=== PATIENT | male | born 1995 | race Caucasian/White ===

== ENCOUNTER 2025-02-16 11:03 | Emergency (ER) | payer OTHER, SELFPAY ==
[2025-02-16 11:08] VITALS: BP 111/70; PULSE 101; RESP 15; TEMP 36.5; O2SAT 96; BMI 31.9
[2025-02-16] MEDS: ONDANSETRON 4 MG/2 ML INJ IV ×2 (11:30→13:27)
[2025-02-16 11:36] LABS: Add Manual Diff / Slide Review NO; Hematocrit 47.7 % (41-53); Hemoglobin 16.4 g/dL (13.5-17.5); Lymphocytes Absolute Auto 300 /uL (1100-4500); Mean Corpuscular HGB Conc 34.3 % (30-36); Mean Corpuscular Hemoglobin 28.4 PG (26-34); Mean Corpuscular Volume 82.6 fL (80-100); Platelet Count 245 X10^3/uL (150-400)
[2025-02-16 11:48] LABS: Alanine Aminotransferase 47 IU/L (<50); Albumin 4.7 g/dL (3.5-5.0); Albumin Globulin Ratio 1.3 (1.0-2.8); Alkaline Phosphatase 100 U/L (38-126); Blood Urea Nitrogen 16 mg/dL (9-20); Calcium 9.1 mg/dL (8.4-10.2); Carbon Dioxide 23 mmol/L (22-32); Chloride 107 mmol/L (98-107); Estimated Glomerular Filt Rate > 60 mL/min (>60); Globulin 3.7 g/dL (1.7-4.1); Glucose 118 mg/dL (70-99); HEMOLYSIS 24 (0-50); Lipase 65 U/L (23-300); Potassium 4.2 mmol/L (3.4-5.1); Sodium 141 mmol/L (137-145); Total Protein 8.4 g/dL (6.3-8.2)
[2025-02-16 11:54] LABS: Ictotest Urine Negative (Negative)
[2025-02-16 12:00] LABS: Culture Indicated Urine Cult Not Indicated
--- NOTE | 2025-02-16 12:49 | ED.ABDPAIN ---
HPI - Abdominal Pain <Lily Cruz PA-C - Last Filed: 02/16/25 19:21> General Chief Complaint: Abdominal Pain Stated Complaint: V/N Throwing up a little bit of blood Time Seen by Provider: 02/16/25 12:34 Source: patient Mode of arrival: Ambulatory History of Present Illness HPI narrative: Mr. 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 Patient states he was in his normal state of health when he went to sleep last night however when he woke up this morning he has had multiple episodes of vomiting and dry heaving. 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 He went to [place] [employer] [place] and was sent to the ER for further management. At this time he feels very dehydrated. States that he has not really having diarrhea but did have 1 loose bowel movement while vomiting earlier today. Denies fevers but admits to chills. No known sick contacts. No smoking, marijuana or drug use. Occasional/social alcohol use. He does admit to having a cough over the last week but denies any other flu-like symptoms, sore throat, congestion or ear pain. No back pain, flank pain, dysuria or hematuria. Related Data Previous Rx's ?Medication ?Instructions ?Recorded amoxicillin 875 mg-potassium 1 tab PO Q12H 7 days #14 tabs 02/16/25 clavulanate 125 mg tablet ondansetron 4 mg disintegrating 4 mg PO Q8H PRN nausea and 02/16/25 tablet vomiting #20 tabs Allergies Allergy/AdvReac Type Severity Reaction Status Date / Time No Known Drug Allergies Allergy Verified 02/16/25 11:08 Review of Systems <Lily Cruz PA-C - Last Filed: 02/16/25 19:21> Review of Systems ROS Unobtainable: All systems reviewed & are unremarkable except as noted in HPI and below Patient History <Lily Cruz PA-C - Last Filed: 02/16/25 19:21> Social History Smoking Status: Unknown if ever smoked Smoking Status: Unknown if ever smoked Exam <Lily Cruz PA-C - Last Filed: 02/16/25 19:21> Narrative Exam Narrative: GENERAL: 29 year old patient appears stated age. Well-developed patient, appears fatigued, in no acute distress, not actively vomiting. HEAD: Atraumatic. Normocephalic. EYES: No scleral icterus. No injection or drainage. NECK: Trachea midline. Cervical ROM intact. CARDIOVASCULAR: Regular rate and rhythm. RESPIRATORY: ?Nonlabored respirations. ?Speaking in clear, full sentences. ?Clear to auscultation. Breath sounds equal bilaterally. No wheezes, rales, or rhonchi. ? GASTROINTESTINAL: Abdomen soft, nondistended, bowel sounds present. There was diffuse nonfocal abdominal tenderness, no rebound or guarding. EXTREMITIES: No LE edema or joint tenderness. NEURO: AOx3. ?Clear speech. ?Moves all 4 extremities appropriately. SKIN: No rash or erythema of visible areas Initial Vital Signs Initial Vital Signs: Vital Signs Temperature 97.7 F 02/16/25 11:08 Pulse Rate 101 H 02/16/25 11:08 Respiratory Rate 15 02/16/25 11:08 Blood Pressure 111/70 02/16/25 11:08 Pulse Oximetry 96 02/16/25 11:08 Oxygen Delivery Method Room Air 02/16/25 11:08 <Neri Collier MD - Last Filed: 02/16/25 19:22> Initial Vital Signs Initial Vital Signs: Vital Signs Temperature 97.7 F 02/16/25 11:08 Pulse Rate 101 H 02/16/25 11:08 Respiratory Rate 15 02/16/25 11:08 Blood Pressure 111/70 02/16/25 11:08 Pulse Oximetry 96 02/16/25 11:08 Oxygen Delivery Method Room Air 02/16/25 11:08 Course <Lily Cruz PA-C - Last Filed: 02/16/25 19:21> Orders Ordered: ED Orders 02/16/25 11:25 Complete Blood Count AUTO DIFF Stat Comprehensive Metabolic Panel Stat Lactate (Lactic Acid) Stat Lipase Stat 02/16/25 11:30 Ictotest Urine Stat Urine Microscopic Stat 02/16/25 12:49 CT abdomen pelvis w con Stat XR chest 2V Stat 02/16/25 17:36 Respiratory Panel (Film Array) Stat Ondansetron HCl (Ondansetron 4 Mg/2 Ml Inj) 4 mg IV NOW PRN PRN Reason: Nausea And Vomiting Last Admin: 02/16/25 11:30 Dose: 4 mg Documented By: SHANE Ondansetron HCl (Ondansetron 4 Mg Odt) 4 mg PO NOW PRN PRN Reason: Nausea And Vomiting Discontinued Medications Acetaminophen (Acetaminophen 325 Mg Tablet) 975 mg PO NOW ONE Stop: 02/16/25 17:11 Last Admin: 02/16/25 17:28 Dose: 975 mg Documented By: SHAHRZAD Sodium Chloride (Normal Saline 0.9%) 1,000 mls @ 1,000 mls/hr IV BOLUS ONE Stop: 02/16/25 13:48 Last Infusion: 02/16/25 14:55 Dose: Infused Documented By: Admin: 02/16/25 13:27 Dose: 1,000 mls/hr Documented By: SHAHRZAD Ceftriaxone Sodium 1,000 mg/ (Sodium Chloride) 100 mls @ 200 mls/hr IV NOW ONE Stop: 02/16/25 14:41 Last Infusion: 02/16/25 15:55 Dose: Infused Documented By: Admin: 02/16/25 14:52 Dose: 200 mls/hr Documented By: DAVON Metronidazole (Flagyl) 500 mg in 100 mls @ 100 mls/hr IV NOW ONE Stop: 02/16/25 15:39 Last Infusion: 02/16/25 17:10 Dose: Infused Documented By: Admin: 02/16/25 15:56 Dose: 100 mls/hr Documented By: SHAHRZAD Sodium Chloride (Normal Saline 0.9%) 1,000 mls @ 1,000 mls/hr IV BOLUS ONE Stop: 02/16/25 18:09 Last Infusion: 02/16/25 19:16 Dose: Infused Documented By: Admin: 02/16/25 17:29 Dose: 1,000 mls/hr Documented By: SHAHRZAD Ketorolac Tromethamine (Ketorolac 30 Mg/Ml Vial) 15 mg IV NOW ONE Stop: 02/16/25 14:26 Last Admin: 02/16/25 14:53 Dose: 15 mg Documented By: DAVON Ondansetron HCl (Ondansetron 4 Mg/2 Ml Inj) 4 mg IV NOW ONE Stop: 02/16/25 12:50 Last Admin: 02/16/25 13:27 Dose: 4 mg Documented By: SHAHRZAD Pantoprazole Sodium (Pantoprazole 40 Mg Vial) 40 mg IV NOW ONE Stop: 02/16/25 12:50 Last Admin: 02/16/25 13:27 Dose: 40 mg Documented By: SHAHRZAD Vital Signs Vital signs: Vital Signs - 8 hr 02/16/25 17:13 02/16/25 17:28 02/16/25 19:17 Temperature 100.4 F H 100.4 F H 99.3 F Pulse Rate 116 H Respiratory Rate 19 Pulse Oximetry 99 <Neri Collier MD - Last Filed: 02/16/25 19:22> Orders Ordered: ED Orders 02/16/25 11:25 Complete Blood Count AUTO DIFF Stat Comprehensive Metabolic Panel Stat Lactate (Lactic Acid) Stat Lipase Stat 02/16/25 11:30 Ictotest Urine Stat Urine Microscopic Stat 02/16/25 12:49 CT abdomen pelvis w con Stat XR chest 2V Stat 02/16/25 17:36 Respiratory Panel (Film Array) Stat Ondansetron HCl (Ondansetron 4 Mg/2 Ml Inj) 4 mg IV NOW PRN PRN Reason: Nausea And Vomiting Last Admin: 02/16/25 11:30 Dose: 4 mg Documented By: SHANE Ondansetron HCl (Ondansetron 4 Mg Odt) 4 mg PO NOW PRN PRN Reason: Nausea And Vomiting Discontinued Medications Acetaminophen (Acetaminophen 325 Mg Tablet) 975 mg PO NOW ONE Stop: 02/16/25 17:11 Last Admin: 02/16/25 17:28 Dose: 975 mg Documented By: SHAHRZAD Sodium Chloride (Normal Saline 0.9%) 1,000 mls @ 1,000 mls/hr IV BOLUS ONE Stop: 02/16/25 13:48 Last Infusion: 02/16/25 14:55 Dose: Infused Documented By: Admin: 02/16/25 13:27 Dose: 1,000 mls/hr Documented By: SHAHRZAD Ceftriaxone Sodium 1,000 mg/ (Sodium Chloride) 100 mls @ 200 mls/hr IV NOW ONE Stop: 02/16/25 14:41 Last Infusion: 02/16/25 15:55 Dose: Infused Documented By: Admin: 02/16/25 14:52 Dose: 200 mls/hr Documented By: DAVON Metronidazole (Flagyl) 500 mg in 100 mls @ 100 mls/hr IV NOW ONE Stop: 02/16/25 15:39 Last Infusion: 02/16/25 17:10 Dose: Infused Documented By: Admin: 02/16/25 15:56 Dose: 100 mls/hr Documented By: SHAHRZAD Sodium Chloride (Normal Saline 0.9%) 1,000 mls @ 1,000 mls/hr IV BOLUS ONE Stop: 02/16/25 18:09 Last Infusion: 02/16/25 19:16 Dose: Infused Documented By: Admin: 02/16/25 17:29 Dose: 1,000 mls/hr Documented By: SHAHRZAD Ketorolac Tromethamine (Ketorolac 30 Mg/Ml Vial) 15 mg IV NOW ONE Stop: 02/16/25 14:26 Last Admin: 02/16/25 14:53 Dose: 15 mg Documented By: DAVON Ondansetron HCl (Ondansetron 4 Mg/2 Ml Inj) 4 mg IV NOW ONE Stop: 02/16/25 12:50 Last Admin: 02/16/25 13:27 Dose: 4 mg Documented By: SHAHRZAD Pantoprazole Sodium (Pantoprazole 40 Mg Vial) 40 mg IV NOW ONE Stop: 02/16/25 12:50 Last Admin: 02/16/25 13:27 Dose: 40 mg Documented By: SHAHRZAD Vital Signs Vital signs: Vital Signs - 8 hr 02/16/25 17:13 02/16/25 17:28 02/16/25 19:17 Temperature 100.4 F H 100.4 F H 99.3 F Pulse Rate 116 H Respiratory Rate 19 Pulse Oximetry 99 MDM - Abdominal Pain <Lily Cruz PA-C - Last Filed: 02/16/25 19:21> Medical Records Medical records narrative: None available for review Lab Data 02/16/25 11:25 02/16/25 11:25 Labs: Lab Results 02/16/25 02/16/25 02/16/25 Range/Units 11:25 11:30 17:36 WBC 16.0 H (4.5-11.0) X10^3/uL RBC 5.78 (4.5-5.9) X10^6/uL Hgb 16.4 (13.5-17.5) g/dL Hct 47.7 (41-53) % MCV 82.6 (80-100) fL MCH 28.4 (26-34) PG MCHC 34.3 (30-36) % RDW 13.1 (11.6-14.8) % Plt Count 245 (150-400) X10^3/uL Neut % (Auto) 94.9 H (50-75) % Lymph % (Auto) 1.6 L (25-40) % [place] % (Auto) 3.1 (3-14) % Eos % (Auto) 0.3 L (2-4) % Baso % (Auto) 0.1 (0-2) % Neut # (Auto) 12787 H (0491-6629) /uL Lymph # (Auto) 300 L (7542-3080) /uL [place] # (Auto) 500 (0-900) /uL Eos # (Auto) 0 (0-450) /uL Baso # (Auto) 0 (0-100) /uL Sodium 141 (137-145) mmol/L Potassium 4.2 (3.4-5.1) mmol/L Chloride 107 (98-107) mmol/L Carbon Dioxide 23 (22-32) mmol/L BUN 16 (9-20) mg/dL Creatinine 1.15 (0.66-1.25) mg/dL Estimated GFR > 60 (>60) mL/min BUN/Creatinine Ratio 13.9 (6-22) Glucose 118 H (70-99) mg/dL Lactate 2.0 (0.7-2.1) mmol/L Calcium 9.1 (8.4-10.2) mg/dL Total Bilirubin 0.9 (0.2-1.3) mg/dL AST 28 (17-59) IU/L ALT 47 (<50) IU/L Alkaline Phosphatase 100 (38-126) U/L Total Protein 8.4 H (6.3-8.2) g/dL Albumin 4.7 (3.5-5.0) g/dL Globulin 3.7 (1.7-4.1) g/dL Albumin/Globulin Ratio 1.3 (1.0-2.8) Lipase 65 (23-300) U/L Ur Bilirubin Confirm Negative (Negative) Urine RBC 0-1/hpf (0-5/HPF) Urine WBC 1-5/hpf (0-5/HPF) Ur Squamous Epith Cells 0-1 /hpf (0-5/HPF) Urine Bacteria Occasional (0-1) (None) Urine Mucus 3+ H (Negative) Ur Culture Indicated? Cult not indicated Vol Urine Centrifuged 10ml (spun) Chlamy pneumoniae PCR Not detected (Not Detect) Adenovirus (PCR) Not detected (Not Detect) B. pertussis DNA (PCR) Not detected (Not Detect) B.parapertussis DNA PCR Not detected (Not Detecte) Coronavirus OC43 (PCR) Not detected (Not Detect) Coronavirus HKU1 (PCR) Not detected (Not Detect) Coronavirus 229E (PCR) Not detected (Not Detect) SARS-CoV-2 (PCR) Not detected (Not Detecte) Coronavirus NL63 (PCR) Not detected (Not Detect) Human Metapneumovir PCR Detected H (Not Detect) Influenza Type A (PCR) Not detected (Not Detect) Influenza Type B (PCR) Not detected (Not Detect) M. pneumoniae (PCR) Not detected (Not Detect) Parainfluenza 1 (PCR) Not detected (Not Detect) Parainfluenza 2 (PCR) Not detected (Not Detect) Parainfluenza 3 (PCR) Not detected (Not Detect) Parainfluenza 4 (PCR) Not detected (Not Detect) RSV (PCR) Not detected (Not Detect) Entero/Rhino (PCR) Not detected (Not Detect) Point of care testing: Urine Dip Bedside Urine Glucose Negative Bedside Urine Bilirubin + 1 Bedside Urine Ketone - Negative Urine Specific [place] 1.030 Bedside Urine Occult Blood - Negative Bedside Urine pH 6.0 Bedside Urine Protein +/- 15 Bedside Urine Urobilinogen - Negative Bedside Urine Nitrite - Negative Bedside Urine Leukocytes - Negative Esterase Imaging Data Chest x-ray: Radiologist's Impression: PROCEDURE: XR CHEST 2V INDICATIONS: cough x 1 week; now w N/V/abd pain TECHNIQUE: 2 views of the chest were acquired. COMPARISON: [facility], CT, CT ABDOMEN PELVIS W CON, 02/16/2025, 13:02. FINDINGS: Surgical changes and devices: None. Lungs and pleura: An incomplete inspiratory result is noted, causing a crowded appearance to the lung markings. No focal infiltrates are seen. No pneumothorax or significant pleural effusions are seen. Mediastinum: Mediastinal contours are normal. Heart size is normal. Bones and chest wall: No suspicious bony abnormalities. Soft tissues appear unremarkable. IMPRESSION: Low lung volumes, without an acute abnormality seen by plain film. No focal infiltrates are seen. Dictated by: Julio Umanzor M.D. on 02/16/2025 at 12:17 Approved by: Julio Umanzor M.D. on 02/16/2025 at 12:17 CT scan - abdomen/pelvis: Radiologist's Impression: PROCEDURE: CT ABDOMEN PELVIS W CON INDICATIONS: diffuse abd pain; N/V TECHNIQUE: After the administration of intravenous contrast, axial sections acquired from the lung bases to the pubic symphysis. Coronal and sagittal reformats were performed. For radiation dose reduction, the following was used: automated exposure control, adjustment of mA and/or kV according to patient size. COMPARISON: [facility], CR, XR CHEST 2V, 02/16/2025, 12:56. FINDINGS: Image quality: Diagnostic. Lower Chest: No significant findings. ABDOMEN: Liver: No solid mass. Gallbladder: No radiopaque gallstones or wall thickening. Biliary ducts: No biliary dilation. Pancreas: No ductal dilation. Spleen: Size is within normal limits. Adrenal Glands: No adrenal nodules. Kidneys and Ureters: No hydronephrosis. No solid mass. No complex renal cystic lesion which requires follow up. Stomach and Bowel: No dilated loops of small bowel are seen. However, there is focal wall thickening and hyperenhancement seen involving the terminal ileum. Focal wall thickening can be seen involving the rectum. The more proximal colon is within normal limits. Peritoneum: No abnormal intraperitoneal fluid. No free air. Ventral Wall: No significant ventral hernia. Abdominal Nodes: No retroperitoneal or mesenteric adenopathy by size criteria. Vessels: Aorta and inferior vena cava are normal in size. PELVIS: Pelvic Organs: Unremarkable. Bladder: No bladder wall thickening, accounting for underdistention. Pelvic Nodes: No enlarged lymph nodes. Miscellaneous: No inguinal hernias are seen. Bones: No aggressive osseous abnormality. IMPRESSION: Focal wall thickening and hyperenhancement can be seen involving the terminal ileum. In a patient of this age, please consider Crohn's disease. Focal wall thickening can be seen involving the rectum. Differential diagnosis includes artifact and distal colitis. Dictated by: Julio Umanzor M.D. on 02/16/2025 at 12:17 Approved by: Julio Umanzor M.D. on 02/16/2025 at 12:20 [facility] Narrative Medical decision making narrative: 29-year-old male, active [employer], with no reported past medical history or surgeries who presents to the emergency department for abdominal pain, nausea and vomiting since this morning. No significant smoking drug or alcohol history. No prior abdominal surgeries. Differential diagnosis includes but is not limited to viral gastroenteritis, cholecystitis, appendicitis, gastritis, colitis, viral syndrome, dehydration, electrolyte abnormality, UTI, SHEYLA, etc. On exam patient is in no acute distress, nontoxic appearing, he is visibly fatigued. He is afebrile. On exam he is nonfocal but diffuse abdominal tenderness, there is no rebound or guarding. Labs obtained in triage reveal elevated WBC count of 16.0, with 94.9% neutrophils. Normal hemoglobin 16.4. Platelets 245. Normal sodium 141, potassium 4.2, BUN 16, creatinine 1.15, there was no comparison. Glucose is 118. Normal AST 28 ALT 47. Normal lipase 65. Urinalysis does reveal mucus, 0-1 squamous epithelial cells, 1-5 WBC, 0-1 RBC. Lactate WNL 2.0. We will treat patient with IV fluids, Zofran at this time and obtain chest x-ray due to cough x1 week and CT abdomen and pelvis due to abdominal pain. Symptoms improved after ED treatment, repeat abdominal exam is improved. Chest x-ray reveals low lung volumes without acute abnormality seen by plain film. CT abdomen pelvis reveals a focal wall thickening and hyperenhancement can be seen involving the terminal ileum? in the patient of this age, please consider Crohn's disease?. There is also focal wall thickening which can be seen involving the rectum differential diagnosis includes artifact and distal colitis. --> I discussed all imaging results with the patient, printed him his own copy. He denies any history of rectal pain or engaging in anal intercourse. No known history of IBD. He is feeling better. I discussed the case with my attending ED physician, Dr. Collier. At this time we will treat for possible bacterial colitis given his elevated white blood cell count, however I did recommend that he follows up for colonoscopy for further evaluation of possible IBD. We will treat with ceftriaxone and Flagyl in the ED then reassess. He has now started tolerating p.o., no episodes of vomiting during his ED stay. 1700: At time of discharge evaluation, patient's temperature was retaken and found to be elevated and HR ranging from 99-116. In addition to his abdominal symptoms he has also been experiencing cough so at this time we will add on Tylenol for fever, additional fluids and viral swab. 1850: Viral Swab positive for UA metapneumovirus. Temp down to 99.3. Discussed all my concerns with the patient that his symptoms could be due to colitis in addition to the upper respiratory virus. At this time his abdominal pain and nausea has subsided but he continues to feel hot. At this time I did offer admission to the hospital for continued observation, patient would like to call his to discuss. 1914: , Susan, now at the bedside. Pt's HR improved to the 90s with her here. Discussed again all lab work and imaging results and the diagnosis of both colitis in addition to human metapneumovirus. Offered admission for continued monitoring however patient would prefer to be discharged at this time. Discussed strict return precautions that he should return if he has no improvement or if he gets any worse. He was prescribed Augmentin and Zofran to take and I also recommended a clear liquid diet for 1-2 days. Repeat physical exam was performed revealing normal bowel sounds, soft and nontender abdomen, clear lung matthew, negative meningeal signs and no lower extremity swelling. Patient his verbalized understanding of all questions, are agreeable with the plan, and patient is stable for discharge home, tolerating p.o.. <Neri Collier MD - Last Filed: 02/16/25 19:22> Lab Data Labs: Lab Results 02/16/25 02/16/25 02/16/25 Range/Units 11:25 11:30 17:36 WBC 16.0 H (4.5-11.0) X10^3/uL RBC 5.78 (4.5-5.9) X10^6/uL Hgb 16.4 (13.5-17.5) g/dL Hct 47.7 (41-53) % MCV 82.6 (80-100) fL MCH 28.4 (26-34) PG MCHC 34.3 (30-36) % RDW 13.1 (11.6-14.8) % Plt Count 245 (150-400) X10^3/uL Neut % (Auto) 94.9 H (50-75) % Lymph % (Auto) 1.6 L (25-40) % [place] % (Auto) 3.1 (3-14) % Eos % (Auto) 0.3 L (2-4) % Baso % (Auto) 0.1 (0-2) % Neut # (Auto) 20553 H (9677-5676) /uL Lymph # (Auto) 300 L (1459-5349) /uL [place] # (Auto) 500 (0-900) /uL Eos # (Auto) 0 (0-450) /uL Baso # (Auto) 0 (0-100) /uL Sodium 141 (137-145) mmol/L Potassium 4.2 (3.4-5.1) mmol/L Chloride 107 (98-107) mmol/L Carbon Dioxide 23 (22-32) mmol/L BUN 16 (9-20) mg/dL Creatinine 1.15 (0.66-1.25) mg/dL Estimated GFR > 60 (>60) mL/min BUN/Creatinine Ratio 13.9 (6-22) Glucose 118 H (70-99) mg/dL Lactate 2.0 (0.7-2.1) mmol/L Calcium 9.1 (8.4-10.2) mg/dL Total Bilirubin 0.9 (0.2-1.3) mg/dL AST 28 (17-59) IU/L ALT 47 (<50) IU/L Alkaline Phosphatase 100 (38-126) U/L Total Protein 8.4 H (6.3-8.2) g/dL Albumin 4.7 (3.5-5.0) g/dL Globulin 3.7 (1.7-4.1) g/dL Albumin/Globulin Ratio 1.3 (1.0-2.8) Lipase 65 (23-300) U/L Ur Bilirubin Confirm Negative (Negative) Urine RBC 0-1/hpf (0-5/HPF) Urine WBC 1-5/hpf (0-5/HPF) Ur Squamous Epith Cells 0-1 /hpf (0-5/HPF) Urine Bacteria Occasional (0-1) (None) Urine Mucus 3+ H (Negative) Ur Culture Indicated? Cult not indicated Vol Urine Centrifuged 10ml (spun) Chlamy pneumoniae PCR Not detected (Not Detect) Adenovirus (PCR) Not detected (Not Detect) B. pertussis DNA (PCR) Not detected (Not Detect) B.parapertussis DNA PCR Not detected (Not Detecte) Coronavirus OC43 (PCR) Not detected (Not Detect) Coronavirus HKU1 (PCR) Not detected (Not Detect) Coronavirus 229E (PCR) Not detected (Not Detect) SARS-CoV-2 (PCR) Not detected (Not Detecte) Coronavirus NL63 (PCR) Not detected (Not Detect) Human Metapneumovir PCR Detected H (Not Detect) Influenza Type A (PCR) Not detected (Not Detect) Influenza Type B (PCR) Not detected (Not Detect) M. pneumoniae (PCR) Not detected (Not Detect) Parainfluenza 1 (PCR) Not detected (Not Detect) Parainfluenza 2 (PCR) Not detected (Not Detect) Parainfluenza 3 (PCR) Not detected (Not Detect) Parainfluenza 4 (PCR) Not detected (Not Detect) RSV (PCR) Not detected (Not Detect) Entero/Rhino (PCR) Not detected (Not Detect) Point of care testing: Urine Dip Bedside Urine Glucose Negative Bedside Urine Bilirubin + 1 Bedside Urine Ketone - Negative Urine Specific [place] 1.030 Bedside Urine Occult Blood - Negative Bedside Urine pH 6.0 Bedside Urine Protein +/- 15 Bedside Urine Urobilinogen - Negative Bedside Urine Nitrite - Negative Bedside Urine Leukocytes - Negative Esterase Discharge Plan Departure Patient Disposition: Home Clinical Impression: Colitis, Acute bronchitis due to human metapneumovirus Nausea & vomiting Qualifiers: Vomiting type: unspecified Qualified Code(s): R11.2 - Nausea with vomiting, unspecified Instructions: DI for Colitis Activity Restrictions/Additional Instructions: Dear Bob Diane, Thank you for coming to the emergency department. Today you were evaluated for abdominal pain, nausea and vomiting. Your CT scan shows inflammation of part of the small intestine and the large intestine. We are treating this inflammation as a possible bacterial infection with antibiotics however sometimes these infections can be caused by chronic inflammatory diseases such as Crohn's disease or viral infections. It is very important that you follow up with your primary care doctor and have a referral for a colonoscopy or GI evaluation for further management. You also tested positive for human metapneumovirus which is an upper respiratory virus. Please rest, eat a clear liquid diet for the next 1-2 days, complete the full course of antibiotics and use the prescribed nausea medicine. Please take small but frequent sips of electrolyte beverage such as Pedialyte or Gatorade. Return to the emergency department if you develop fevers, severe pain, worsening symptoms or any other concerns or if you have no improvement. Please follow up with your primary care doctor within the next 2-3 days for ER follow-up. (If you do not have a PCP you can call [phone]. ?to schedule an appointment with an [facility] Primary Care Provider) IF YOU DEVELOP ANY NEW OR WORSENING SYMPTOMS, RETURN TO THE ER! Please read the attached instructions, they highlight more specific treatments and interventions for you at home. Thank you for letting me participate in your care, Lily Cruz PA-C Prescriptions: New ondansetron 4 mg tablet,disintegrating 4 mg PO Q8H PRN (Reason: nausea and vomiting) Qty: 20 0RF amoxicillin-pot clavulanate 875-125 mg tablet 1 tab PO Q12H 7 Days Qty: 14 0RF Referrals: Provider,Christa CRISTINA [Primary Care Provider, Family Practice] Stand Alone Forms: Work Release Note ED Sign-out <Neri Collier MD - Last Filed: 02/16/25 19:22> Cosign ED Attending Magali Attestation: I was immediately available in the department for consultation. ?This documentation has been reviewed and I agree with assessment and plan. Supervised by Neri Collier MD
[2025-02-16 13:04] LABS: Lactate (Lactic Acid) 2.0 mmol/L (0.7-2.1)
[2025-02-16] MEDS: SODIUM CHLORIDE 0.9% 1,000 ML 1000 ML IV ×2 (13:27→17:29)
[2025-02-16] MEDS: PANTOPRAZOLE 40 MG VIAL IV (13:27)
[2025-02-16] MEDS: KETOROLAC 30 MG/ML VIAL 15 MG IV (14:53)
[2025-02-16] MEDS: metroNIDAZOLE 500 MG/100 ML PIGGYBACK 100 MG IV (15:56)
[2025-02-16 17:13] VITALS: PULSE 116; RESP 19; TEMP 38; O2SAT 99
[2025-02-16 17:28] VITALS: TEMP 38
[2025-02-16] MEDS: ACETAMINOPHEN 325 MG TABLET 975 MG PO (17:28)
[2025-02-16 18:37] LABS: Coronavirus NL 63 Not Detected (Not Detect); SARS- CoV-2 Not Detected (Not Detecte)
[2025-02-16 19:17] VITALS: BP 108/59; PULSE 95; RESP 16; TEMP 37.4; O2SAT 100
--- NOTE | 2025-02-16 19:32 | PC.NURSE ---
vitals reported to fran auguste; pt informed again if he wishes to stay and or be reevaluated he is welcome to do so. Pt states he wishes to go home and states he will come back if he feels worse. PA aware.
== END 2025-02-16 19:33 | disposition home or self-care (01) ==
PROVIDERS: Emergency Medicine; Emergency Provider Physician Assistant
DX: J20.8 Acute bronchitis due to other specified organisms (principal); K52.9 Noninfective gastroenteritis and colitis, unspecified; R11.2 Nausea with vomiting, unspecified; R05.9 Cough, unspecified
CPT/HCPCS: 36415; 71046; 74177; 80053; 81003; 81015; 83605; 83690; 85025; 87633; 96361; 96365; 96367; 96375; 96376; 99284; J0696; J1885; J2405; J2470; Q9967